=== PATIENT | male | born 1980 | race American Indian/Alaskan Native ===

== ENCOUNTER 2017-06-21 07:12 | Emergency (ER) | payer MEDICAID, OTHER ==
[2017-06-21 07:13] VITALS: BMI 22.3
[2017-06-21] MEDS ORDERED: Lidocaine 5% Patch TD STA (07:46)
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
[2017-06-21 08:57] LABS: SQUAMOUS EPITHIAL < 1 /hpf (0-5); URINE BACTERIA OCC (<OCC); URINE BILIRUBIN NEGATIVE (NEGATIVE); URINE BLOOD NEGATIVE (NEGATIVE); URINE CLARITY SLIGHTY-CLOUDY (Clear); URINE COLOR YELLOW (YELLOW); URINE GLUCOSE (UA) NEG (Normal); URINE LEUKOCYTE ESTERASE LARGE Leu/uL (Negative); URINE NITRATE NEGATIVE (NEGATIVE); URINE PROTEIN 30 mg/dL (NEGATIVE); URINE UROBILINOGEN 0.2-1.0 mg/dL (0.2-1.0)
== END 2017-06-21 10:33 | disposition home or self-care (01) ==
LOC: H.ER 07:12
DX: M54.9 Dorsalgia, unspecified (principal)

== ENCOUNTER 2017-06-22 07:27 | Emergency (ER) | payer OTHER ==
[2017-06-22 07:28] VITALS: BMI 22.3
[2017-06-22 07:53] VITALS: BP 118/57; PULSE 91; RESP 20; TEMP 98.4
[2017-06-22 07:59] VITALS: O2SAT 98
--- NOTE | 2017-06-22 10:01 | ED PDOC ---
Lower Extremity Pain/Injury Time Seen by Provider: 06/22/17 07:52 Chief Complaint (Nursing): Lower Extremity Problem/Injury Chief Complaint (Provider): Lower Extremity Problem/Injury History Per: Patient History/Exam Limitations: no limitations Onset/Duration Of Symptoms: Days (x3-4) Current Symptoms Are (Timing): Still Present Additional Complaint(s): Luigi Helton is a 36 year old male presenting to the ED for an evaluation of a 3-4 day history of left lower back and left buttock pain. The patient states this pain worsened because [facility]. The patient was last seen in this ED yesterday for the same complaints and was prescribed Tylenol and Flexeril, both taken without relief. He denies numbness, tingling, or urinary changes. The patient has no other medical complaints. PMD: None Provided Past Medical History Reviewed: Historical Data, Nursing Documentation, Vital Signs Vital Signs: Last Vital Signs Temp 98.4 F 06/22/17 07:53 Pulse 91 H 06/22/17 07:53 Resp 20 06/22/17 07:53 BP 118/57 L 06/22/17 07:53 Pulse Ox 98 06/22/17 07:56 - Medical History PMH: Denies: Depression, Diabetes, Hepatitis, HIV, HTN, Seizures, Sexually Transmitted Disease - Surgical History Surgical History: No Surg Hx - Family History Family History: States: Unknown Family Hx - Social History Current smoker - smoking cessation education provided: No - Immunization History Hx Tetanus Toxoid Vaccination: No Hx Influenza Vaccination: No Hx Pneumococcal Vaccination: No - Home Medications Home Medications: Ambulatory Orders Medication Instructions Recorded Acetaminophen [Tylenol 325mg tab] 650 mg PO Q6H PRN #50 tab 06/21/17 Cyclobenzaprine [Cyclobenzaprine 10 mg PO TID #30 tab 06/21/17 HCl] Lidocaine 5% [Lidoderm] 1 patch TD DAILY #10 patch 06/21/17 Naproxen [Naprosyn] 500 mg PO BID PRN #14 tablet 06/22/17 - Allergies Allergies/Adverse Reactions: Allergies Allergy/AdvReac Type Severity Reaction Status Date / Time No Known Allergies Allergy Verified 06/22/17 07:56 Review of Systems ROS Statement: Except As Marked, All Systems Reviewed And Found Negative Genitourinary Male: Negative for: Dysuria, Frequency, Incontinence, Hematuria Musculoskeletal: Positive for: Back Pain (left lower), Leg Pain (left buttock pain ) Neurological: Negative for: Numbness (and no tingling ) Physical Exam - Reviewed Nursing Documentation Reviewed: Yes Vital Signs Reviewed: Yes - Physical Exam Appears: Positive for: Well, Non-toxic, No Acute Distress Head Exam: Positive for: ATRAUMATIC, NORMAL INSPECTION, NORMOCEPHALIC Skin: Positive for: Normal Color, Warm, DRY Eye Exam: Positive for: EOMI, Normal appearance, PERRL ENT: Positive for: Normal ENT Inspection Neck: Positive for: Normal, Painless ROM Cardiovascular/Chest: Positive for: Regular Rate, Rhythm Respiratory: Positive for: CNT, Normal Breath Sounds Gastrointestinal/Abdominal: Positive for: Normal Exam, Bowel Sounds, Soft Back: Positive for: Other (left lateral hypertonicity ) Extremity: Positive for: Normal ROM, Tenderness (left buttock tenderness in sciatic region ) Neurologic/Psych: Positive for: Alert, Oriented - ECG O2 Sat by Pulse Oximetry: 98 (RA) Pulse Ox Interpretation: Normal Medical Decision Making Medical Decision Makin:52 Initial Impression: Left lower back/buttock pain Plan: * Toradol 30 mg IM * left hip X-ray * Re-evaluation X-rays unremarkable of hip Will discharge. Discussed with pt to f/u with clinic or PMD. Scribe Attestation: Documented by Lesly Bernal, acting as a scribe for Jase Galaviz DO. Provider Scribe Attestation: All medical record entries made by the Scribe were at my direction and personally dictated by me. I have reviewed the chart and agree that the record accurately reflects my personal performance of the history, physical exam, medical decision making, and the department course for this patient. I have also personally directed, reviewed, and agree with the discharge instructions and disposition. Disposition - Clinical Impression Clinical Impression: Back pain - Disposition Referrals: [facility] [Outside] Disposition Time: 10:06 Condition: STABLE Additional Instructions: Take medications as directed. Recommend back strengthening exercises. Prescriptions: Naproxen [Naprosyn] 500 mg PO BID PRN #14 tablet PRN Reason: Pain, Moderate (4-7) Instructions: Acute Low Back Pain (ED) Forms: [employer] (Ivorian)
--- NOTE | 2017-06-22 11:50 | RAD ---
PROCEDURE: Left Hip with pelvis X-ray Radiographs. HISTORY: L hip pain COMPARISON: None. FINDINGS: BONES: Normal. No fracture. The pelvic ring appears intact with unremarkable appearing sacroiliac joints and sacrum. Pubic symphysis intact. JOINTS: Normal. SOFT TISSUES: Normal. OTHER FINDINGS: None. IMPRESSION: Normal left hip and pelvis radiographs.
== END 2017-06-22 10:38 | disposition home or self-care (01) ==
LOC: H.ER 07:27
DX: M25.552 Pain in left hip (principal); M54.9 Dorsalgia, unspecified
CPT/HCPCS: 73502; 96372; 99284; J1885

== ENCOUNTER 2018-05-20 06:55 | Emergency (ER) | payer MEDICAID, OTHER ==
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
--- NOTE | 2018-05-20 11:12 | RAD ---
PROCEDURE: Radiographs of the pelvis. HISTORY: hip pain COMPARISON: None. FINDINGS: BONES: Pelvic Bones: Unremarkable. Hips: Grossly unremarkable. JOINTS: Sacroiliac Joints: Unremarkable. Pubic Symphysis: Unremarkable. OTHER FINDINGS: None. IMPRESSION: Unremarkable radiographs of the pelvis.
[2018-05-20 12:45] VITALS: BP 98/56; PULSE 82; RESP 18; TEMP 97.9; O2SAT 97
== END 2018-05-20 09:36 | disposition home or self-care (01) ==
LOC: H.ER 06:55
DX: S76.219A Strain of adductor muscle, fascia and tendon of unspecified thigh, initial encounter (principal); Y92.89 Other specified places as the place of occurrence of the external cause; M54.16 Radiculopathy, lumbar region

== ENCOUNTER 2018-05-27 06:54 | Emergency (ER) | payer MEDICAID ==
[2018-05-27 07:21] VITALS: PULSE 74
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
[2018-05-27 11:01] VITALS: BP 107/50; RESP 18; TEMP 98
[2018-05-27 14:07] VITALS: O2SAT 98
--- NOTE | 2018-05-27 14:42 | RAD ---
PROCEDURE: Left Hip X-ray Radiographs. HISTORY: L hip pain chronic COMPARISON: Pelvis radiograph 7 8 18 FINDINGS: BONES: Normal. No fracture. JOINTS: Joint spaces relatively preserved. SOFT TISSUES: Normal. OTHER FINDINGS: None. IMPRESSION: No evidence of acute displaced fracture nor dislocation.
== END 2018-05-27 10:57 | disposition home or self-care (01) ==
LOC: H.ER 06:54
DX: M25.552 Pain in left hip (principal); F17.210 Nicotine dependence, cigarettes, uncomplicated; Z86.59 Personal history of other mental and behavioral disorders

== ENCOUNTER 2018-07-01 16:09 | Emergency (ER) | payer MEDICAID ==
[2018-07-01 16:14] VITALS: BP 119/75; PULSE 83; RESP 16; TEMP 98.8; O2SAT 99
[2018-07-01] MEDS ORDERED: Amoxicillin-Clav 500-125 mg Tab PO STA (16:23)
[2018-07-01] MEDS ORDERED: Amoxicillin-Clav 875-125 mg Tab PO STA (16:34)
--- NOTE | 2018-07-01 16:34 | ED PDOC ---
HPI: Dental Pain/Injury Time Seen by Provider: 07/01/18 16:14 Chief Complaint (Nursing): Dental Pain Chief Complaint (Provider): Toothache History Per: Patient History/Exam Limitations: no limitations Onset/Duration Of Symptoms: Days (2-3) Current Symptoms Are (Timing): Still Present Severity: None Additional Complaint(s): 37 year old male presents to the emergency department complaining of 2-3 days of a right upper toothache. Patient has not used medication for relief of symptoms. Denies trauma. PMD: Bobby Perdomo Past Medical History Reviewed: Historical Data, Nursing Documentation, Vital Signs Vital Signs: Last Vital Signs Temp 98.8 F 07/01/18 16:12 Pulse 83 07/01/18 16:12 Resp 16 07/01/18 16:12 BP 119/75 07/01/18 16:12 Pulse Ox 99 07/01/18 16:12 - Medical History PMH: Anxiety, Bipolar Disorder Denies: Depression, Diabetes, Hepatitis, HIV, HTN, Seizures, Sexually Transmitted Disease - Surgical History Surgical History: No Surg Hx - Family History Family History: States: Unknown Family Hx - Social History Current smoker - smoking cessation education provided: Yes (Light Smoker < 10 Cigarettes Daily) Alcohol: Other Drugs: Prescription medications, Other (Marijuana) - Immunization History Hx Tetanus Toxoid Vaccination: No Hx Influenza Vaccination: No Hx Pneumococcal Vaccination: No - Home Medications Home Medications: Ambulatory Orders Medication Instructions Recorded Ibuprofen [Motrin] 400 mg PO Q8H PRN #20 tab 04/18/18 Naproxen [Naprosyn] 500 mg PO Q12H #20 tab 05/20/18 Ibuprofen [Motrin Tab] 600 mg PO Q6 PRN #15 tab 05/27/18 Amoxicillin/Clavulanate [Augmentin 1 tab PO BID #19 tab 07/01/18 500 MG-125 MG] Ibuprofen [Motrin Tab] 600 mg PO Q6 PRN #20 tab 07/01/18 - Allergies Allergies/Adverse Reactions: Allergies Allergy/AdvReac Type Severity Reaction Status Date / Time No Known Allergies Allergy Verified 05/27/18 07:16 Review of Systems Constitutional: Negative for: Fever, Chills ENT: Positive for: Other (Dental Pain) Physical Exam - Reviewed Nursing Documentation Reviewed: Yes Vital Signs Reviewed: Yes - Physical Exam Appears: Positive for: Non-toxic, No Acute Distress Head Exam: Positive for: NORMAL INSPECTION Skin: Positive for: Normal Color, Warm, Dry. Negative for: Rash Eye Exam: Positive for: Normal appearance, EOMI, PERRL ENT: Positive for: Normal ENT Inspection, TM Is/Are (non-rythematous and non- bulging), Other (right maxillary premolar tooth there is tooth decay and minimal gingival swelling around tooth TM non-erythematous and non-bulging /l neuro: A&O x3 ) Neurologic/Psych: Positive for: Alert, Oriented - ECG O2 Sat by Pulse Oximetry: 99 (RA) Pulse Ox Interpretation: Normal Medical Decision Making Medical Decision Makin Initial Impression 37 year old male presenting with dental pain Initial Plan: * Amoxicillin 1 tab PO * Toradol 30 mg IM * Reevaluation ------- Documented by Rashida Gonsales acting as a scribe for Amrit Miller PA-C. All medical record entries made by the Scribe were at my direction and personally dictated by me. I have reviewed the chart and agree that the record accurately reflects my personal performance of the history, physical exam, medical decision making, and the department course for this patient. I have also personally directed, reviewed, and agree with the discharge instructions and disposition. Disposition - Clinical Impression Clinical Impression: Tooth pain - Patient ED Disposition Is Patient to be Admitted: No - Disposition Referrals: [facility] [Outside] [facility] [Outside] Disposition: Routine/Home Disposition Time: 16:20 Condition: IMPROVED Additional Instructions: FOLLOW UP WITH DENTIST FOR FURTHER EVALUATION WITHOUT FAIL DMITRIY HERRERA, thank you for letting us take care of you today. Your provider was Sheryl Villatoro MD and you were treated for TOOTH PAIN. The emergency medical care you received today was directed at your acute symptoms. If you were prescribed any medication, please fill it and take as directed. It may take several days for your symptoms to resolve. Return to the Emergency Department if your symptoms worsen, do not improve, or if you have any other problems. Please contact your doctor or call one of the physicians/clinics you have been referred to that are listed on the Patient Visit Information form that is included in your discharge packet. Bring any paperwork you were given at discharge with you along with any medications you are taking to your follow up visit. Our treatment cannot replace ongoing medical care by a primary care provider outside of the emergency department. Thank you for allowing the [facility] team to be part of your care today. If you had an X-Ray or CT scan: A Radiologist will review the ED reading if any change in treatment is needed we will contact you. If you had a blood, urine, or wound culture: It will take several days for the results, if any change in treatment is needed we will contact you. If you had an STI test: It will take 48 hours for the results. Please call after 1 week if you have not heard back. Prescriptions: Amoxicillin/Clavulanate [Augmentin 500 MG-125 MG] 1 tab PO BID #19 tab Ibuprofen [Motrin Tab] 600 mg PO Q6 PRN #20 tab PRN Reason: Pain Instructions: Dental Pain (DC) Forms: [employer] (Saudi Arabian) Print Language: PERUVIAN
[2018-07-01] MEDS ORDERED: Amoxicillin-Clav 875-125 mg Tab PO ONE (16:38)
== END 2018-07-01 16:47 | disposition home or self-care (01) ==
LOC: H.ER 16:09
DX: K08.89 Other specified disorders of teeth and supporting structures (principal); Z86.59 Personal history of other mental and behavioral disorders; F17.210 Nicotine dependence, cigarettes, uncomplicated
CPT/HCPCS: 96372; 99282; J1885

== ENCOUNTER 2019-01-08 16:49 | Emergency (ER) | payer MEDICAID ==
[2019-01-08 16:49] VITALS: BMI 22.1
[2019-01-08 17:25] VITALS: RESP 16
[2019-01-08] MEDS ORDERED: Sodium Chloride 0.9% 1,000 ML IV STA (17:42)
--- NOTE | 2019-01-08 18:08 | ED PDOC ---
HPI: General Adult Time Seen by Provider: 01/08/19 17:31 Chief Complaint (Nursing): GI Problem Chief Complaint (Provider): Vomiting, Nausea, Weakness History Per: Patient History/Exam Limitations: no limitations Onset/Duration Of Symptoms: Days (today ) Current Symptoms Are (Timing): Still Present Additional Complaint(s): 38 year old undomiciled male presents to the ED for an evaluation of two episodes of vomiting and nausea associated with mild headache, weakness and body ache onset today. Patient reports he smoked PCP yesterday. Otherwise, patient denies fever, chills, chest pain, cough, nasal discharge, nasal congestion, shortness of breath, abdominal pain, diarrhea, dysuria, frequency, incontinence, dizziness or SI/HI. Also denies any intake of new or different food or fluid. PMD: Bobby Gan Past Medical History Reviewed: Historical Data, Nursing Documentation, Vital Signs Vital Signs: Last Vital Signs Temp 99.5 F 01/08/19 17:23 Pulse 87 01/08/19 17:23 Resp 16 01/08/19 17:23 BP 103/64 01/08/19 17:23 Pulse Ox 98 01/08/19 17:23 - Medical History PMH: Anxiety, Bipolar Disorder Denies: Depression, Diabetes, Hepatitis, HIV, HTN, Seizures, Sexually Transmitted Disease - Family History Family History: States: Unknown Family Hx - Social History Alcohol: None Drugs: Other (PCP yesterday ) - Immunization History Hx Tetanus Toxoid Vaccination: No Hx Influenza Vaccination: No Hx Pneumococcal Vaccination: No - Home Medications Home Medications: Ambulatory Orders Medication Instructions Recorded Ibuprofen [Motrin] 400 mg PO Q8H PRN #20 tab 04/18/18 Naproxen [Naprosyn] 500 mg PO Q12H #20 tab 05/20/18 Ibuprofen [Motrin Tab] 600 mg PO Q6 PRN #15 tab 05/27/18 Amoxicillin/Clavulanate [Augmentin 1 tab PO BID #19 tab 07/01/18 500 MG-125 MG] Ibuprofen [Motrin Tab] 600 mg PO Q6 PRN #20 tab 07/01/18 Ondansetron [Zofran] 4 mg PO Q8H PRN #6 tab 01/08/19 - Allergies Allergies/Adverse Reactions: Allergies Allergy/AdvReac Type Severity Reaction Status Date / Time No Known Allergies Allergy Verified 01/08/19 17:23 Review of Systems ROS Statement: Except As Marked, All Systems Reviewed And Found Negative Constitutional: Positive for: Weakness, Other (body ache). Negative for: Fever, Chills ENT: Negative for: Nose Discharge, Nose Congestion Cardiovascular: Negative for: Chest Pain Respiratory: Negative for: Cough, Shortness of Breath Gastrointestinal: Positive for: Nausea, Vomiting. Negative for: Abdominal Pain, Diarrhea Genitourinary Male: Negative for: Dysuria, Frequency, Incontinence Neurological: Positive for: Headache (mild). Negative for: Dizziness Psych: Negative for: Suicidal ideation, Other (homicidal ideation ) Physical Exam - Reviewed Nursing Documentation Reviewed: Yes Vital Signs Reviewed: Yes - Physical Exam Appears: Positive for: Non-toxic, No Acute Distress Head Exam: Positive for: ATRAUMATIC, NORMAL INSPECTION, NORMOCEPHALIC Skin: Positive for: Normal Color, Warm, Dry. Negative for: Rash Eye Exam: Positive for: EOMI, Normal appearance, PERRL ENT: Positive for: Normal ENT Inspection Neck: Positive for: Normal, Painless ROM, Supple. Negative for: Decreased ROM Cardiovascular/Chest: Positive for: Regular Rate, Rhythm. Negative for: Murmur Respiratory: Positive for: Normal Breath Sounds. Negative for: Decreased Breath Sounds, Respiratory Distress Gastrointestinal/Abdominal: Positive for: Normal Exam, Soft. Negative for: Tenderness, Guarding, Rebound Back: Positive for: Normal Inspection Extremity: Positive for: Normal ROM. Negative for: Tenderness, Pedal Edema, Deformity Neurologic/Psych: Positive for: Alert, slurry mixer II-XII (intact), Oriented (x3), Gait (steady). Negative for: Motor/Sensory Deficits, Mood/Affect, Aphasia, Facial Droop - Laboratory Results Result Diagrams: 01/08/19 18:18 01/08/19 18:18 Lab Results: no acute - ECG O2 Sat by Pulse Oximetry: 98 (RA) Pulse Ox Interpretation: Normal - Progress ED Course And Treament: 1843: Stable. AAOx3. Pain free. Tolerated PO. Fu with pcp. [facility]. Medical Decision Making Medical Decision Making: Time: 1741 Plan: --Alcohol serum --CMP --Drug screen --Lipase --Troponin --Urine Dip --CBC w/ differential --Normal Saline 1000 mls/hr --Zofran Injection --Reevaluation Scribe Attestation: Documented by Wesly Estrada acting as a scribe for Jack Weaver MD Provider Attestation: All medical record entries made by the Scribe were at my direction and personally dictated by me. I have reviewed the chart and agree that the record accurately reflects my personal performance of the history, physical exam, medical decision making, and the department course for this patient. I have also personally directed, reviewed, and agree with the discharge instructions and disposition. Disposition - Clinical Impression Clinical Impression: Vomiting - Patient ED Disposition Is Patient to be Admitted: No Counseled Patient/Family Regarding: Studies Performed, Diagnosis, Need For Followup, Rx Given - Disposition Referrals: [facility] [place] [Outside] - 01/09/19 Disposition: Routine/Home Disposition Time: 18:44 Condition: STABLE Additional Instructions: Return if not better in 3 days. Prescriptions: Ondansetron [Zofran] 4 mg PO Q8H PRN #6 tab PRN Reason: Nausea/Vomiting Instructions: Nausea and Vomiting, Adult (DC)
[2019-01-08 18:32] LABS: BASO % 0.1 % (0.0-2.0); EOS % 0.3 % (0.0-4.0); HEMOGLOBIN 13.4 g/dL (12.0-18.0); LYMPH # 0.7 K/uL (1.0-4.3); LYMPH % 11.9 % (20.0-40.0); MEAN CELL VOLUME 95.5 fl (80.0-94.0); MEAN CORPUSCULAR HEMOGLOBIN 31.2 pg (27.0-31.0); MEAN CORPUSCULAR HGB CONC 32.6 g/dL (33.0-37.0); MEAN PLATELET VOLUME 6.4 fl (7.2-11.7); MONO # 0.5 K/uL (0.0-0.8); MONO % 8.9 % (0.0-10.0); NEUT # 4.8 K/uL (1.8-7.0); NEUT % 78.8 % (50.0-75.0); RBC 4.28 Mil/uL (4.40-5.90); RED CELL DISTRIBUTION WIDTH 13.5 % (11.5-14.5); WHITE BLOOD COUNT 6.1 K/uL (4.8-10.8)
[2019-01-08 18:41] LABS: ALB/GLOB RATIO 0.9 (1.0-2.1); ALBUMIN 3.7 g/dL (3.5-5.0); ALT/SGPT 32 U/L (21-72); AST/SGOT 42 U/L (17-59); BLOOD UREA NITROGEN 14 mg/dl (9-20); GFR NON-AFRICAN AMERICAN > 60; LIPASE 78 U/L (23-300)
[2019-01-08 19:12] VITALS: BP 118/72; PULSE 80; TEMP 98.9; O2SAT 99
[2019-01-08 19:25] LABS: BARBITURATES, UR NEGATIVE (NEGATIVE); BENZODIAZEPINES, UR NEGATIVE (NEGATIVE); OPIATES, UR NEGATIVE (NEGATIVE); PHENCYCLIDINE, UR NEGATIVE (NEGATIVE)
== END 2019-01-08 19:12 | disposition home or self-care (01) ==
LOC: H.ER 16:49
DX: R11.10 Vomiting, unspecified (principal); Z86.59 Personal history of other mental and behavioral disorders; Z79.899 Other long term (current) drug therapy
CPT/HCPCS: 80053; 80320; 80324; 80345; 80346; 80349; 80353; 80358; 80361; 83690; 83992; 84484; 85025; 96374; 99283; J2405; J7030